=== PATIENT | female | born 1955 | race Caucasian/White ===

== ENCOUNTER → 2022-03-28 | Outpatient (CLI) | payer MEDICARE, MEDICAID, SELFPAY ==
--- NOTE | 2022-03-28 07:09 | ECHOD_ITS ---
Reason For Study: Dyspnea/SOB Procedure This was a 2D Doppler, Color Flow transthoracic echocardiogram. Exam performed in department. Left Ventricle Normal LV size. Left ventricular systolic function is normal. The estimated ejection fraction is 60 %. No regional wall motion abnormalities noted. Right Ventricle Normal RV size. Normal systolic function. Atria Normal left atrium. Normal right atrium. Mitral Valve Bileaflet diffuse mitral valve thickening. Mild (1+) mitral valve insufficiency. Tricuspid Valve Normal tricuspid valve. Mild (1+) tricuspid valve insufficiency. Pulmonary artery systolic pressure is 36 mmHg. Aortic Valve Normal aortic valve. Trisinus/trileaflet aortic valve. Pulmonic Valve Normal pulmonic valve. Great Vessels Normal aortic root. The pulmonary artery is normal size. Normal inferior vena cava. Pericardium/Pleural No pericardial effusion. MMode/2D Measurements & Calculations LVIDd: 4.2 cm IVSd: 1.2 cm Ao root diam: 2.7 cm LVIDs: 2.2 cm LVPWd: 0.91 cm LA dimension: 3.5 cm RVDd: 3.0 cm FS: 47.8 % LAV(MOD-bp): 41.6 ml LA A4 area: 15.8 cm2 RA A4 area: 12.1 cm2 LAV(MOD-bp) Indexed: 26.0 ml/m2 LAV(MOD-sp2): 38.5 ml LAV(MOD-sp4): 41.5 ml Time Measurements MV dec time: 0.16 sec Doppler Measurements & Calculations MV E max dorian: 96.6 cm/sec Lat Peak E' Dorian: 10.6 cm/sec Med Peak E' Dorian: 9.8 cm/sec MV A max dorian: 70.3 cm/sec E/E' lat: 9.1 E/E' med: 9.9 MV E/A: 1.4 MV V2 max: 93.7 cm/sec MV dec slope: 620.8 cm/sec2 Ao V2 max: 132.2 cm/sec MV max P.5 mmHg Ao max P.0 mmHg MV V2 mean: 46.5 cm/sec Ao V2 mean: 91.2 cm/sec MV mean P.0 mmHg Ao mean P.8 mmHg MV V2 VTI: 26.7 cm Ao V2 VTI: 32.8 cm AV (velocity ratio): 0.74 AI max dorian: 502.7 cm/sec LV V1 max: 107.7 cm/sec MR max dorian: 532.1 cm/sec AI max P.1 mmHg LV V1 max P.6 mmHg MR max P.2 mmHg LV V1 mean P.3 mmHg MR mean dorian: 420.7 cm/sec AI dec slope: 341.8 cm/sec2 LV V1 mean: 69.9 cm/sec MR mean P.3 mmHg AI P1/2t: 430.8 msec LV V1 VTI: 24.2 cm MR VTI: 192.8 cm PA V2 max: 83.0 cm/sec TR max dorian: 282.8 cm/sec TR max P.0 mmHg ECHO/Echo Complete Interpretation Summary Left ventricular systolic function is normal. Normal LV size. The estimated ejection fraction is 60 %. Mild (1+) mitral valve insufficiency. Pulmonary artery systolic pressure is 36 mmHg. Ordering Physician: Jalen Jesus Performed By: Cesar Joseph [facility]
--- NOTE | 2022-03-28 16:25 | STRESSREP ---
Stress Test Report Exercise myocardial perfusion stress test. 66-year-old lady with a history of dyspnea on exertion Stress protocol: Resting EKG demonstrates normal sinus rhythm with a rate of 63 bpm resting blood pressure is 142/80 mmHg. The patient exercised according to the regular Abran protocol for a total duration of 5 minutes attaining a maximum heart rate of 108 bpm which was 70% of maximum predicted heart rate; the maximum workload was 7 metabolic equivalents. At rest there were no ST or T wave changes noted to suggest ischemia and at peak exercise upsloping ST changes only were noted which did not meet the criteria for ischemia. No clinical angina was noted the test was terminated due to the target heart rate being achieved/fatigue. The peak blood pressure was 178/58 mmHg. Rate-pressure product was 17,800. Myocardial perfusion protocol. 11.0 mCi of technetium 99m sestamibi was injected at rest. The patient exercised according to regular Abran protocol for total duration of 5 minutes and at peak exercise 30.9 mCi of technetium 99m sestamibi was injected stress images were obtained stress and rest images were reconstructed in comparing the short axis vertical long and horizontal long axis. Gated images were also obtained. Perfusion SPECT analysis: Review of the stress images demonstrate normal uptake of tracer noted in all areas of the myocardium. The resting images similarly demonstrate normal uptake of tracer noted in all areas of the myocardium. No areas of reversibility are noted to suggest ischemia no previous infarct was noted. Gated SPECT analysis: The gated ejection fraction is 77%. Conclusion: Normal exercise myocardial perfusion stress test at a moderate workload Preserved ejection fraction.
== END | disposition home or self-care (01) ==
PROVIDERS: PCP Family Medicine; Visit Provider Internal Medicine Cardiovascular Disease
DX: R06.02 Shortness of breath (principal); R53.83 Other fatigue; R06.09 Other forms of dyspnea
CPT/HCPCS: 78452; 93017; 93306; A9500; A4216

== ENCOUNTER → 2022-05-11 | Outpatient (CLI) | payer MEDICARE, MEDICAID, SELFPAY ==
--- NOTE | 2022-05-11 09:50 | CDU_ITS ---
Reason For Study: Lt Carotid Bruit Rt. Velocities/BP Lt. Velocities/BP Prox CCA 71/13 cm/sec. Prox CCA 93/14 cm/sec. Mid CCA 77/15 cm/sec. Mid CCA 90/16 cm/sec. Dist CCA 79/16 cm/sec. Dist CCA 74/13 cm/sec. Prox ICA 62/18 cm/sec. Prox ICA 71/13 cm/sec. Mid ICA 79/22 cm/sec. Mid ICA 69/20 cm/sec. Dist ICA 99/24 cm/sec. Dist ICA 95/27 cm/sec. Rt. ICA/CCA = 1.3. Lt. ICA/CCA = 1.1. Prox ECA 133/5 cm/sec. Prox ECA 94/4 cm/sec. Rt. Vert. 67/11 cm/sec. Lt. Vert. 38/11 cm/sec. Right Extracranial There is heterogeneous, irregular atherosclerotic plaque noted in the right common carotid artery. There is heterogeneous, irregular atherosclerotic plaque noted in the right internal carotid artery. There is intimal thickening but no significant atherosclerotic plaque noted in the right external carotid artery. Antegrade flow is noted in the right vertebral artery. Left Extracranial There is intimal thickening but no significant atherosclerotic plaque noted in the left common carotid artery. There is homogeneous, smooth atherosclerotic plaque noted in the left internal carotid artery. There is homogeneous, smooth atherosclerotic plaque noted in the left external carotid artery. Antegrade flow is noted in the left vertebral artery. Procedure Carotid Duplex 33726. This is a Carotid Duplex examination using B-mode, color flow and specral Doppler. Exam performed in department. VL/Carotid Duplex Ultrasound Interpretation Summary Mild (<50%) stenosis right extracranial internal carotid. Mild (<50%) stenosis left extracranial internal carotid. Patent and antegrade vertebrals bilaterally. Ordering Physician: Leida Sigala Referring Physician: Anais Avila Performed By: Zaina Bobby, RDCS, RVT
--- NOTE | 2022-05-11 09:50 | ART_ITS ---
Reason For Study: PVD Procedure A bilateral lower extremity continuous wave Doppler with analog waveform analysis,segmental pressures,and ankle brachial indexes with exercise. Left Segmental Pressures Left brachial= 134mmHg. Left thigh = 133mmHg. Left calf = 117mmHg. Left posterior tibial artery = 123mmHg. Left dorsalis pedis artery = 126mmHg. Left digit = 102 mmHg. Right Segmental Pressures Right brachial= 132mmHg. Right thigh = 138mmHg. Right calf = 129mmHg. Right posterior tibial artery = 126mmHg. Right dorsalis pedis artery = 108mmHg. Right digit = 70 mmHg. Indices The right ankle brachial index by the posterior tibial artery is 0.94. The right ankle brachial index by the dorsalis pedis is 0.81. The right digital-brachial index is 0.52. The right post exercise ankle brachial index is 0.51. The left ankle brachial index by the posterior tibial artery is 0.92. The left ankle brachial index by the dorsalis pedis is 0.94. The left digital-brachial index is 0.76. The left post exercise ankle brachial index is 0.70. VL/Lower Ext Art Exam w/ Exercise Interpretation Summary Right TESS 0.94, mild arterial insufficiency. Doppler/PVR waveforms and segmenta l pressures reveal no focal disease. Right lower extremity with abnormal response to exercise and post exercise TESS in the severe category. Left TESS 0.94, mild arterial insufficiency. Doppler/PVR waveforms and segmental pressures reveal no focal disease. Left lower extremity with abnormal response to exercise and post exercise TESS i n the moderate category. Ordering Physician: Leida Sigala Referring Physician: Anais Avila Performed By: Zaina Bobby RDCS/RVT
== END | disposition home or self-care (01) ==
LOC: CVS 09:48
PROVIDERS: PCP Family Medicine; Visit Provider Physician Assistant
DX: R09.89 Other specified symptoms and signs involving the circulatory and respiratory systems (principal); I73.9 Peripheral vascular disease, unspecified
CPT/HCPCS: 93880; 93924

== ENCOUNTER → 2022-05-15 | Outpatient (CLI) | payer MEDICARE, MEDICAID, SELFPAY ==
--- NOTE | 2022-05-16 07:32 | PFT ---
INTRODUCTION: The patient is a 66-year-old female that presents for pulmonary function studies secondary to a diagnosis of dyspnea. Respiratory therapy reported good patient effort. Bronchodilators were used during testing. INTERPRETATION: Forced expiration spirometry demonstrates the presence of a mild large airways obstructive ventilatory defect. There was no significant response to aerosolized bronchodilators. Spirograms are of good quality but do not plateau indicating slow emptying of the lungs. Body plethysmography was performed and revealed an elevated RV to 133% of predicted, indicative of underlying air trapping. Diffusing capacity by single breath CO was within normal limits. IMPRESSION: Irreversible mild large airways obstructive ventilatory defect with associated air trapping and preserved diffusing capacity.
== END | disposition home or self-care (01) ==
LOC: PSN 09:50
PROVIDERS: PCP Family Medicine; Visit Provider Nurse Practitioner Gerontology
DX: R06.00 Dyspnea, unspecified (principal); Z72.0 Tobacco use
CPT/HCPCS: 94060; 94726; 94729